=== PATIENT | female | born 1960 | race Caucasian/White ===

== ENCOUNTER 2016-09-16 13:37 | Emergency (ER) | payer OTHER ==
[2016-09-16 14:29] LABS: BASO # 0.1 10_X3_uL (0.0-0.1); BASO % 0.8 % (0.1-1.2); EOS # 0.2 10_X3_uL (0.0-0.4); EOS % 2.4 % (0.7-5.8); GRAN # 2.3 10_X3_uL (1.6-6.1); GRAN % 35.8 % (34.0-71.1); HEMATOCRIT 38.7 % (34-45); HEMOGLOBIN 12.9 g/dL (11.2-15.7); LYMPH # 3.2 10_X3_uL (1.2-3.7); LYMPH % 51.3 % (19.3-51.7); MEAN CORPUSCULAR HEMOGLOBIN 28.5 pg (27.0-33.0); MEAN CORPUSCULAR HGB CONC 33.3 g/dL (32.0-36.0); MEAN CORPUSCULAR VOLUME 85.6 fL (79-95); MEAN PLATELET VOLUME 9.2 fl (7.5-11.5); MONO # 0.6 10_X3_uL (0.2-0.9); MONO % 9.7 % (4.7-12.5); PLATELET COUNT 289 x10_3/uL (182-369); RED BLOOD COUNT 4.52 x10_6/uL (3.9-5.2); RED CELL DISTRIBUTION WIDTH 13.3 % (11.7-14.4); WHITE BLOOD COUNT 6.3 x10_3/uL (4.0-10.0)
[2016-09-16 14:41] LABS: ALBUMIN 4.4 gm/dL (3.4-5.0); ALKALINE PHOSPHATASE 60 U/L (50-136); ALT/SGPT 10 U/L (3.5-33.9); AST/SGOT 22 U/L (7.04-26.96); BILIRUBIN,TOTAL 0.24 mg/dL (0.0-1.0); BLOOD UREA NITROGEN 8 mg/dL (7-18); CALCIUM 8.9 mg/dL (8.7-10.7); CARBON DIOXIDE 28 mmol/L (21-32); CREATININE 0.7 mg/dL (0.6-1.3); GLUCOSE,RANDOM 95 mg/dL (70-99); POTASSIUM 3.4 mmol/L (3.5-5.1); SODIUM 141 mmol/L (136-145); TOTAL PROTEIN 7.8 gm/dL (6.4-8.2)
[2016-09-16 14:51] LABS: URINE BILIRUBIN NEGATIVE (NEGATIVE); URINE BLOOD 2+ (NEGATIVE); URINE GLUCOSE (UA) NORMAL (NORMAL); URINE KETONE NEGATIVE (NEGATIVE); URINE LEUKOCYTE ESTERASE NEGATIVE (NEGATIVE); URINE NITRATE NEGATIVE (NEGATIVE); URINE PROTEIN NEGATIVE (NEGATIVE); UROBILINOGEN NORMAL mg/dL (<1.0)
[2016-09-16 15:05] LABS: URINE BACTERIA TRACE (NONE SEEN); URINE SQUAMOUS EPITHELIAL CELL 0-10 /[HPF] (NONE SEEN); URINE WBC 0-5 /[HPF] (0-5); URINE YEAST FEW (NONE SEEN)
== END 2016-09-16 15:50 | disposition home or self-care (01) ==
LOC: ER 13:37
PROVIDERS: Emergency Medicine
DX: M79.604 Pain in right leg (principal); M79.605 Pain in left leg; R10.9 Unspecified abdominal pain; G62.9 Polyneuropathy, unspecified; Z85.89 Personal history of malignant neoplasm of other organs and systems; F17.210 Nicotine dependence, cigarettes, uncomplicated; Z88.1 Allergy status to other antibiotic agents; Z88.8 Allergy status to other drugs, medicaments and biological substances; Z79.899 Other long term (current) drug therapy; Z79.891 Long term (current) use of opiate analgesic; Z79.82 Long term (current) use of aspirin; Z79.1 Long term (current) use of non-steroidal anti-inflammatories (NSAID); Z79.52 Long term (current) use of systemic steroids
CPT/HCPCS: 36415; 80053; 81001; 83880; 85025; 99070; 99283